=== PATIENT | male | born 1985 | race Caucasian/White ===

== ENCOUNTER 2018-02-23 20:05 | Emergency (ER) | payer OTHER ==
[~2018-02-23] VITALS: Ht 167.6 cm; Wt 81.6 kg
== END 2018-02-23 22:31 | disposition home or self-care (01) ==
LOC: ER 20:05
DX: J11.1 Influenza due to unidentified influenza virus with other respiratory manifestations (principal)

== ENCOUNTER 2022-04-16 09:38 | Emergency (ER) | payer OTHER ==
[~2022-04-16] VITALS: Ht 167.6 cm; Wt 90.7 kg
[2022-04-16] MEDS ORDERED: PAXLOVID 300-11 EACH PO (12:14)
[2022-04-16] MEDS ORDERED: XOPENEX0.63 MG/3 IH (12:14)
[2022-04-16] MEDS ORDERED: ZYNCOF 400-201 EACH PO (12:14)
[2022-04-16] MEDS ORDERED: BUDESONIDE0.5 MG/2 M IH (12:14)
== END 2022-04-16 12:49 | disposition home or self-care (01) ==
LOC: ER 09:38
DX: U07.1 COVID-19 (principal)

== ENCOUNTER 2024-06-23 10:39 | Emergency (ER) | payer OTHER ==
[~2024-06-23] VITALS: Ht 172.7 cm; Wt 90.7 kg
[~2024-06-23 10:39] MED LIST: BUDESONIDE0.5 MG/2 M IH; PAXLOVID 300-11 EACH PO; XOPENEX0.63 MG/3 IH; ZYNCOF 400-201 EACH PO
[2024-06-23 12:19] LABS: BASO % 0.3 % (0.1-1.2); EOS # 0.02 (0.04-0.54); EOS % 0.2 % (0.7-7.0); HEMOGLOBIN 14.5 g/dL (13.7-17.5); LYMPH # 0.95 (1.18-3.74); LYMPH % 8.5 % (19.3-53.1); MEAN CORPUSCULAR HEMOGLOBIN 27.5 pg (25.6-32.2); MONO # 1.76 (0.24-0.82); NEUT # 8.34 (1.56-6.13); NEUT % 74.7 % (34.0-71.1); PLATELET COUNT 202 K/uL (163-369); RED BLOOD COUNT 5.27 M/uL (4.63-6.08); RED CELL DISTRIBUTION WIDTH 13.6 % (11.6-14.4)
[2024-06-23 12:20] LABS: MONO % 15.8 % (4.7-12.5)
[2024-06-23 12:32] LABS: COVID-19 AG NEGATIVE (NEGATIVE)
[2024-06-23 12:37] LABS: INFLUENZA A AG NEGATIVE (NEGATIVE)
[2024-06-23] MEDS ORDERED: DEXAMETHASONE SODIUM PHOSPHATE 4 MG/ML VIAL IM STA (12:49)
== END 2024-06-23 13:26 | disposition home or self-care (01) ==
LOC: ER 11:30
PROVIDERS: General Practice
DX: J11.1 Influenza due to unidentified influenza virus with other respiratory manifestations (principal); J45.909 Unspecified asthma, uncomplicated; Z20.822 Contact with and (suspected) exposure to COVID-19